=== PATIENT | female | born 1965 | race Caucasian/White ===

== ENCOUNTER 2025-04-01 22:33 | Emergency (ER) | payer OTHER ==
[~2025-04-01] VITALS: Ht 157.5 cm; Wt 73.0 kg
[2025-04-01 22:35] VITALS: O2SAT 100
[2025-04-01 22:42] VITALS: BP 126/82; PULSE 72; RESP 16; TEMP 36.7; O2SAT 100
[2025-04-01 23:08] LABS: BASOPHILS % 0.4 % (0.0-2.0); EOSINOPHILS % 2.3 % (0.0-5.0); HEMATOCRIT. 37.9 % (36.0-48.0); MEAN CORPUSCULAR HEMOGLOBIN 30.3 pg (28.0-32.0); MEAN CORPUSCULAR HGB CONC 34.2 g/dL (31.0-37.0); MEAN CORPUSCULAR VOLUME 88.7 fL (81.0-99.0); MEAN PLATELET VOLUME 9.5 fl (7.4-10.4); MONOCYTES % 7.5 % (2.0-8.0); NEUTROPHILS % 36.8 % (40.0-76.0); PLATELET 212 x1000/uL (130-400); RED BLOOD CELL COUNT 4.28 mill/uL (4.2-5.4); RED CELL DISTRIBUTION WIDTH 13.1 % (11.6-14.6); WHITE BLOOD COUNT 7.6 x1000/uL (4.5-11.0)
[2025-04-01 23:15] LABS: CHLORIDE 108 mEq/L (98-107); POTASSIUM 4.1 mEq/L (3.5-5.1); SODIUM 140 mEq/L (136-145)
[2025-04-01 23:16] LABS: CALCIUM 9.4 mg/dL (8.7-10.4); CARBON DIOXIDE 25 mEq/L (21-32)
[2025-04-01 23:21] LABS: CREATININE 0.9 mg/dL (0.6-1.0); GLUCOSE 109 mg/dL (70-105); UREA NITROGEN BLOOD 23 mg/dL (9-23)
[2025-04-01 23:23] LABS: TROPONIN I HIGH SENSITIVITY < 4 ng/L (3.0-34)
== END 2025-04-02 00:10 | disposition home or self-care (01) ==
LOC: ER 22:33
DX: R07.89 Other chest pain (principal); Z90.710 Acquired absence of both cervix and uterus; Z98.890 Other specified postprocedural states
CPT/HCPCS: 36415; 71045; 80048; 84484; 85025; 93005; 99285